=== PATIENT | male | born 1970 | race Caucasian/White ===

== ENCOUNTER 2021-04-11 08:12 | Outpatient (REF) | payer OTHER, SELFPAY ==
[2021-04-11 11:41] LABS: MANUAL DIFF FLAG NO
[2021-04-11 11:49] LABS: Basophils Percent Auto 0.5 % (0-2); Eosinophils Absolute Auto 0.2 X10*3/uL (0.0-0.4); Eosinophils Percent Auto 2.5 % (0-4); Hematocrit 44.1 % (42-52); Hemoglobin 15.1 g/dl (14.0-18.0); Imm Gran Abs Auto 0.03 X10*3/uL (0.00-0.03); Imm Gran Pct Auto 0.5 % (0.0-0.4); Lymphocytes Absolute Auto 1.7 X10*3/uL (1.2-4.9); Lymphocytes Percent Auto 28.6 % (20-40); Mean Corpuscular HGB Conc 34.2 g/dl (31.0-36.0); Mean Corpuscular Hemoglobin 28.5 pg (27.0-33.0); Mean Corpuscular Volume 83.2 fL (80-98); Mean Platelet Volume 11.3 fL (9.4-12.4); Monocytes Absolute Auto 0.5 X10*3/uL (0.1-1.2); Monocytes Percent Auto 8.5 % (2-11); Neutrophils Absolute Auto 3.5 X10*3/uL (2.0-8.3); Neutrophils Percent Auto 59.4 % (45-73); Platelet Count 188 X10*3/uL (160-400); Red Cell Distribution Width 11.9 % (11.0-16.0)
[2021-04-11 11:57] LABS: Estimated Average Glucose 289 mg/dL; Hemoglobin A1c % 11.7 %
[2021-04-11 12:00] LABS: Alanine Aminotransferase 35 U/L (0-40); Albumin Level 4.3 g/dL (3.5-5.0); Alkaline Phosphatase 75 U/L (39-117); Anion Gap 11 (12-20); Aspartate Amino Transferase 21 U/L (5-37); Bilirubin Total 0.8 mg/dL (0.0-1.0); Blood Urea Nitrogen 14 mg/dL (9-16); Calcium 9.4 mg/dL (8.4-10.2); Carbon Dioxide 28 mmol/L (22-29); Chloride 102 mmol/L (96-108); Cholesterol 123 mg/dL; Estimated Glomerular Filt Rate > 60; Glucose Fasting 284 mg/dL (60-99); HDL Cholesterol 34 mg/dL; LDL Cholesterol Calculated 54 mg/dl; Potassium 4.4 mmol/L (3.3-5.1); Sodium 137 mmol/L (135-145); Total Protein 6.4 g/dL (6.5-8.0); Triglycerides 176 mg/dL
== END 2021-04-11 08:13 | disposition home or self-care (01) ==
LOC: HO.MANLDS 08:12
PROVIDERS: PCP Internal Medicine; Visit Provider Physician Assistant
DX: I10 Essential (primary) hypertension (principal); E11.9 Type 2 diabetes mellitus without complications; E78.00 Pure hypercholesterolemia, unspecified
CPT/HCPCS: 36415; 80053; 80061; 83036; 85025

== ENCOUNTER 2021-07-03 07:51 | Outpatient (REF) | payer OTHER, SELFPAY ==
[2021-07-03 11:55] LABS: Estimated Average Glucose 223 mg/dL; Hemoglobin A1c % 9.4 %
== END 2021-07-03 07:52 | disposition home or self-care (01) ==
LOC: HO.MANLDS 07:51
PROVIDERS: PCP Internal Medicine; Visit Provider Internal Medicine
DX: E11.9 Type 2 diabetes mellitus without complications (principal)
CPT/HCPCS: 36415; 83036

== ENCOUNTER 2021-10-06 07:52 | Outpatient (REF) | payer OTHER, SELFPAY ==
[2021-10-06 11:25] LABS: MANUAL DIFF FLAG NO
[2021-10-06 11:36] LABS: Estimated Average Glucose 220 mg/dL; Hemoglobin A1c % 9.3 %
[2021-10-06 11:37] LABS: Basophils Percent Auto 0.4 % (0-2); Eosinophils Absolute Auto 0.1 X10*3/uL (0.0-0.4); Eosinophils Percent Auto 1.8 % (0-4); Hematocrit 46.4 % (42.0-52.0); Hemoglobin 15.8 g/dl (14.0-18.0); Imm Gran Abs Auto 0.02 X10*3/uL (0.00-0.03); Imm Gran Pct Auto 0.3 % (0.0-0.4); Lymphocytes Absolute Auto 2.1 X10*3/uL (1.2-4.9); Lymphocytes Percent Auto 29.1 % (20-40); Mean Corpuscular HGB Conc 34.1 g/dl (31.0-36.0); Mean Corpuscular Hemoglobin 28.7 pg (27.0-33.0); Mean Corpuscular Volume 84.4 fL (80.0-98.0); Mean Platelet Volume 11.5 fL (9.4-12.4); Monocytes Absolute Auto 0.6 X10*3/uL (0.1-1.2); Monocytes Percent Auto 9.1 % (2-11); Neutrophils Absolute Auto 4.2 x10*3/uL (2.0-8.3); Neutrophils Percent Auto 59.3 % (45-73); Platelet Count 197 X10*3/uL (160-400); Red Cell Distribution Width 11.9 % (11.0-16.0); White Blood Count 7.1 X10*3/uL (4.8-10.8)
[2021-10-06 11:55] LABS: Creatinine Urine 203.16 mg/dL; Microalbum/Creatinine Ratio Ur 7.3 ug/mg cr
[2021-10-06 12:12] LABS: Alanine Aminotransferase 31 U/L (0-40); Albumin Level 4.2 g/dL (3.5-5.0); Alkaline Phosphatase 64 U/L (39-117); Anion Gap 11 (12-20); Aspartate Amino Transferase 16 U/L (5-37); Blood Urea Nitrogen 17 mg/dL (9-16); Calcium 9.7 mg/dL (8.4-10.2); Carbon Dioxide 28 mmol/L (22-29); Chloride 103 mmol/L (96-108); Cholesterol 119 mg/dL; Estimated Glomerular Filt Rate > 60; Glucose Fasting 224 mg/dL (60-99); HDL Cholesterol 29 mg/dL; LDL Cholesterol Calculated 39 mg/dl; Potassium 4.4 mmol/L (3.3-5.1); Sodium 138 mmol/L (135-145); Total Protein 6.5 g/dL (6.5-8.0); Triglycerides 259 mg/dL
== END 2021-10-06 07:53 | disposition home or self-care (01) ==
LOC: HO.MANLDS 07:52
PROVIDERS: PCP Internal Medicine; Visit Provider Internal Medicine
DX: E11.9 Type 2 diabetes mellitus without complications (principal)
CPT/HCPCS: 36415; 80053; 80061; 82043; 83036; 85025

== ENCOUNTER 2022-07-09 07:41 | Outpatient (REF) | payer OTHER, SELFPAY ==
[2022-07-09 11:47] LABS: Estimated Average Glucose 240 mg/dL
[2022-07-09 11:57] LABS: Alanine Aminotransferase 28 U/L (0-40); Albumin Level 4.3 g/dL (3.5-5.0); Alkaline Phosphatase 65 U/L (39-117); Anion Gap 16 (12-20); Aspartate Amino Transferase 22 U/L (5-37); Bilirubin Total 0.9 mg/dL (0.0-1.0); Blood Urea Nitrogen 25 mg/dL (9-16); Calcium 9.7 mg/dL (8.4-10.2); Carbon Dioxide 24 mmol/L (22-29); Chloride 101 mmol/L (96-108); Cholesterol 109 mg/dL; Estimated Glomerular Filt Rate > 60; Glucose Random 246 mg/dL (60-115); HDL Cholesterol 34 mg/dL; LDL Cholesterol Calculated 41 mg/dl; Potassium 4.7 mmol/L (3.3-5.1); Sodium 136 mmol/L (135-145); Total Protein 6.3 g/dL (6.5-8.0); Triglycerides 172 mg/dL
[2022-07-09 12:26] LABS: Prostate Specific Antigen 1.95 ng/mL (<0.05-4.0)
== END 2022-07-09 07:42 | disposition home or self-care (01) ==
LOC: HO.MANLDS 07:41
PROVIDERS: Visit Provider Internal Medicine
DX: Z12.5 Encounter for screening for malignant neoplasm of prostate (principal); E11.9 Type 2 diabetes mellitus without complications
CPT/HCPCS: 36415; 80053; 80061; 83036; 84153

== ENCOUNTER 2023-01-01 08:09 | Outpatient (REF) | payer OTHER, SELFPAY ==
[2023-01-01 11:36] LABS: Estimated Average Glucose 197 mg/dL; Hemoglobin A1c % 8.5 %
[2023-01-01 12:19] LABS: Creatinine Urine 76.53 mg/dL; Microalbum/Creatinine Ratio Ur 11.7 ug/mg cr
[2023-01-01 12:23] LABS: Alanine Aminotransferase 29 U/L (0-40); Albumin Level 4.2 g/dL (3.5-5.0); Alkaline Phosphatase 54 U/L (39-117); Anion Gap 14 (12-20); Aspartate Amino Transferase 18 U/L (5-37); Bilirubin Total 1.1 mg/dL (0.0-1.0); Blood Urea Nitrogen 22 mg/dL (9-16); Calcium 9.2 mg/dL (8.4-10.2); Carbon Dioxide 27 mmol/L (22-29); Chloride 102 mmol/L (96-108); Estimated Glomerular Filt Rate > 60; Glucose Random 321 mg/dL (60-115); Potassium 4.4 mmol/L (3.3-5.1); Sodium 139 mmol/L (135-145); Total Protein 6.1 g/dL (6.5-8.0)
== END 2023-01-01 08:10 | disposition home or self-care (01) ==
LOC: HO.MANLDS 08:09
PROVIDERS: Visit Provider Internal Medicine
DX: E11.9 Type 2 diabetes mellitus without complications (principal)
CPT/HCPCS: 36415; 80053; 82043; 83036

== ENCOUNTER 2023-05-06 08:33 | Outpatient (REF) | payer OTHER, SELFPAY ==
[2023-05-06 13:27] LABS: MANUAL DIFF FLAG NO
[2023-05-06 13:57] LABS: Basophils Percent Auto 0.5 % (0-2); Eosinophils Absolute Auto 0.1 X10*3/uL (0.0-0.4); Eosinophils Percent Auto 1.2 % (0-4); Hematocrit 48.6 % (42.0-52.0); Hemoglobin 16.7 g/dl (14.0-18.0); Imm Gran Abs Auto 0.04 X10*3/uL (0.00-0.03); Imm Gran Pct Auto 0.5 % (0.0-0.4); Lymphocytes Absolute Auto 2.2 X10*3/uL (1.2-4.9); Lymphocytes Percent Auto 26.7 % (20-40); Mean Corpuscular HGB Conc 34.4 g/dl (31.0-36.0); Mean Corpuscular Volume 84.5 fL (80.0-98.0); Monocytes Absolute Auto 0.6 X10*3/uL (0.1-1.2); Monocytes Percent Auto 7.8 % (2-11); Neutrophils Absolute Auto 5.1 x10*3/uL (2.0-8.3); Neutrophils Percent Auto 63.3 % (45-73); Platelet Count 194 X10*3/uL (160-400); Red Blood Count 5.75 X10*6/uL (4.60-5.80); Red Cell Distribution Width 12.6 % (11.0-16.0); White Blood Count 8.1 X10*3/uL (4.8-10.8)
[2023-05-06 13:59] LABS: Estimated Average Glucose 171 mg/dL; Hemoglobin A1c % 7.6 % (<6.0)
[2023-05-06 14:07] LABS: Alanine Aminotransferase 26 U/L (0-40); Albumin Level 4.3 g/dL (3.5-5.0); Alkaline Phosphatase 67 U/L (39-117); Anion Gap 13 (12-20); Aspartate Amino Transferase 27 U/L (5-37); Bilirubin Total 0.7 mg/dL (0.0-1.0); Blood Urea Nitrogen 20 mg/dL (9-16); Calcium 9.8 mg/dL (8.4-10.2); Carbon Dioxide 25 mmol/L (22-29); Chloride 106 mmol/L (96-108); Cholesterol 120 mg/dL (<200); Estimated Glomerular Filt Rate > 60; Glucose Random 154 mg/dL (60-115); HDL Cholesterol 31 mg/dL (>40); Potassium 4.3 mmol/L (3.3-5.1); Sodium 140 mmol/L (135-145); Total Protein 6.8 g/dL (6.5-8.0); Triglycerides 408 mg/dL (<150)
== END 2023-05-06 08:34 | disposition home or self-care (01) ==
LOC: HO.MANLDS 08:33
PROVIDERS: Visit Provider Internal Medicine
DX: E11.9 Type 2 diabetes mellitus without complications (principal)
CPT/HCPCS: 36415; 80053; 80061; 83036; 85025

== ENCOUNTER 2023-09-02 08:04 | Outpatient (REF) | payer OTHER, SELFPAY ==
[2023-09-02 09:40] LABS: MANUAL DIFF FLAG NO
[2023-09-02 09:43] LABS: Basophils Percent Auto 0.6 % (0-2); Eosinophils Absolute Auto 0.1 X10*3/uL (0.0-0.4); Eosinophils Percent Auto 1.5 % (0-4); Hematocrit 45.8 % (42.0-52.0); Hemoglobin 15.6 g/dl (14.0-18.0); Imm Gran Abs Auto 0.03 X10*3/uL (0.00-0.03); Imm Gran Pct Auto 0.4 % (0.0-0.4); Lymphocytes Absolute Auto 2.2 X10*3/uL (1.2-4.9); Lymphocytes Percent Auto 30.5 % (20-40); Mean Corpuscular HGB Conc 34.1 g/dl (31.0-36.0); Mean Corpuscular Hemoglobin 28.6 pg (27.0-33.0); Mean Corpuscular Volume 83.9 fL (80.0-98.0); Mean Platelet Volume 11.1 fL (9.4-12.4); Monocytes Absolute Auto 0.6 X10*3/uL (0.1-1.2); Monocytes Percent Auto 8.4 % (2-11); Neutrophils Absolute Auto 4.2 x10*3/uL (2.0-8.3); Neutrophils Percent Auto 58.6 % (45-73); Platelet Count 187 X10*3/uL (160-400); Red Blood Count 5.46 X10*6/uL (4.60-5.80); Red Cell Distribution Width 12.2 % (11.0-16.0); White Blood Count 7.2 X10*3/uL (4.8-10.8)
[2023-09-02 09:56] LABS: Alanine Aminotransferase 25 U/L (0-40); Albumin Level 4.2 g/dL (3.5-5.0); Alkaline Phosphatase 58 U/L (39-117); Anion Gap 13 (12-20); Aspartate Amino Transferase 18 U/L (5-37); Bilirubin Total 0.8 mg/dL (0.0-1.0); Blood Urea Nitrogen 16 mg/dL (9-16); Calcium 9.4 mg/dL (8.4-10.2); Carbon Dioxide 26 mmol/L (22-29); Chloride 103 mmol/L (96-108); Cholesterol 115 mg/dL (<200); Estimated Glomerular Filt Rate > 60; Glucose Random 190 mg/dL (60-115); HDL Cholesterol 33 mg/dL (>40); LDL Cholesterol Calculated 31 mg/dL (<100); Potassium 3.7 mmol/L (3.3-5.1); Sodium 138 mmol/L (135-145); Total Protein 6.6 g/dL (6.5-8.0); Triglycerides 256 mg/dL (<150)
[2023-09-02 10:31] LABS: Estimated Average Glucose 209 mg/dL; Hemoglobin A1c % 8.9 % (<6.0)
== END 2023-09-02 08:05 | disposition home or self-care (01) ==
LOC: HO.MANLDS 08:04
PROVIDERS: Visit Provider Internal Medicine
DX: E11.9 Type 2 diabetes mellitus without complications (principal)
CPT/HCPCS: 36415; 80053; 80061; 83036; 85025

== ENCOUNTER 2024-12-08 07:35 | Outpatient (REF) | payer OTHER, SELFPAY ==
[2024-12-08 13:36] LABS: MANUAL DIFF FLAG NO
[2024-12-08 13:43] LABS: Basophils Percent Auto 0.4 % (0-2); Eosinophils Absolute Auto 0.1 X10*3/uL (0.0-0.4); Eosinophils Percent Auto 1.8 % (0-4); Hematocrit 47.2 % (42.0-52.0); Hemoglobin 16.1 g/dl (14.0-18.0); Imm Gran Abs Auto 0.03 X10*3/uL (0.00-0.03); Imm Gran Pct Auto 0.4 % (0.0-0.4); Lymphocytes Absolute Auto 1.9 X10*3/uL (1.2-4.9); Mean Corpuscular HGB Conc 34.1 g/dl (31.0-36.0); Mean Corpuscular Hemoglobin 28.6 pg (27.0-33.0); Mean Platelet Volume 11.5 fL (9.4-12.4); Monocytes Absolute Auto 0.6 X10*3/uL (0.1-1.2); Monocytes Percent Auto 8.6 % (2-11); Neutrophils Absolute Auto 4.7 x10*3/uL (2.0-8.3); Neutrophils Percent Auto 63.8 % (45-73); Platelet Count 185 X10*3/uL (160-400); Red Blood Count 5.62 X10*6/uL (4.60-5.80); Red Cell Distribution Width 12.4 % (11.0-16.0); White Blood Count 7.4 X10*3/uL (4.8-10.8)
[2024-12-08 13:54] LABS: Estimated Average Glucose 260 mg/dL; Hemoglobin A1c % 10.7 % (<6.0)
[2024-12-08 14:03] LABS: Alanine Aminotransferase 37 U/L (0-40); Albumin Level 4.2 g/dL (3.5-5.0); Alkaline Phosphatase 51 U/L (39-117); Anion Gap 12 (12-20); Aspartate Amino Transferase 27 U/L (5-37); Bilirubin Total 0.9 mg/dL (0.0-1.0); Blood Urea Nitrogen 20 mg/dL (9-16); Calcium 9.6 mg/dL (8.4-10.2); Carbon Dioxide 26 mmol/L (22-29); Chloride 104 mmol/L (96-108); Cholesterol 119 mg/dL (<200); Estimated Glomerular Filt Rate > 60; Glucose Random 203 mg/dL (60-115); HDL Cholesterol 33 mg/dL (>40); LDL Cholesterol Calculated 33 mg/dL (<100); Potassium 3.9 mmol/L (3.3-5.1); Sodium 138 mmol/L (135-145); Total Protein 6.5 g/dL (6.5-8.0); Triglycerides 268 mg/dL (<150)
[2024-12-08 14:30] LABS: Creatinine Urine 73.11 mg/dL; Microalbum/Creatinine Ratio Ur 13.6 ug/mg cr (<30)
== END 2024-12-08 07:36 | disposition home or self-care (01) ==
LOC: HO.MANLDS 07:35
PROVIDERS: Visit Provider Internal Medicine
DX: E78.00 Pure hypercholesterolemia, unspecified (principal); E11.9 Type 2 diabetes mellitus without complications
CPT/HCPCS: 36415; 80053; 80061; 82043; 82570; 83036; 85025

== ENCOUNTER 2025-04-13 07:38 | Outpatient (REF) | payer OTHER, SELFPAY ==
--- OUTSIDE RECORDS SUMMARY | 2025-04-13 07:42 | XMS_ITS | Clinical Summary ---
Author Organization [facility] Address [address] [address] Phone Care Team Providers Care Sack Sorter Name Role Phone Oleg Dsouza Primary Care Provider [phone] Allergies Active Allergy Reactions Criticality Noted Date Comments Azithromycin 05/08/2020 Medications atorvastatin (LIPITOR) 40 MG tablet Take 40 mg by mouth daily. Active metoprolol succinate (TOPROL-XL) 100 MG 24 hr tablet Take 100 mg by mouth daily. Active metFORMIN (GLUCOPHAGE) 500 MG tablet Take 500 mg by mouth 2 (two) times a day with meals. Active aspirin 81 MG EC tablet Take 81 mg by mouth daily. Active Social History Tobacco Use Types Packs/Day Years Used Date Smoking Tobacco: Never Smokeless Tobacco: Never Alcohol Use Standard Drinks/Week Comments Yes 0 (1 standard drink = 0.6 oz pur e alcohol) occ Education Answer Date Recorded Are you interested in more education? Not on frandy e 01/11/2023 Are you concerned about learning? Not on file 01/11/2023 No 01/11/2023 No 01/11/2023 Digital Access Answer Date Recorded No 02/11/2023 No 02/11/2023 No 02/11/2023 Reliable internet access at home? Not on file 02/11/2023 Device with a working camera? Not on file Sex and Gender Information Value Date Recorded Sex Assigned at Male 05/08/2020 4:12 PM EDT Legal Sex Male 9:36 PM EDT Gender Identity Male 05/08/2020 4:12 PM EDT Sexual Orientation Not on file Last Filed Vital Signs Vital Sign Reading Time Taken Comments Blood Pressure 124/67 05/08/2020 6:02 PM EDT Pulse 68 05/08/2020 6:02 PM EDT Temperature 36.5 C (97.7 F) 05/08/2020 6:02 PM EDT Respiratory Rate 16 05/08/2020 6:02 PM EDT Oxygen Saturation 98% 05/08/2020 6:02 PM EDT Inhaled Oxygen Concentration - - Weight 113.4 kg (250 lb) 05/08/2020 4:06 PM EDT Height 188 cm (6' 2 ) 05/08/2020 4:06 PM EDT Body Mass Index 32.1 05/08/2020 4:06 PM EDT Plan of Treatment Not on file Medical Devices Not on file Insurance [facility] Member Subscriber Plan / Payer (Ef fective 2002-Present) Name:Andrey Robin Relation to Subscriber:Self Name:ANDREY ROBIN Payer ID:[id number] (NA) Type:HMO Address: [place] [id number] [facility] [place] [address] [place] [address] [place] [address] [facility] Care Teams Sack Sorter Relationship Specialty Start Date End Date Oleg Dsouza DO [phone] (work) [email or web address] PCP - General Internal Medicine 05/08/20 Additional Source Comments The information contained in this document represents components of the legal health record. It is not the complete legal health record.[facility]
--- OUTSIDE RECORDS SUMMARY | 2025-04-13 07:43 | XMS_ITS | Data Portability ---
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) [facility] MODERATE MUST MEET 2 OUT OF 3 ELEMENTS: PROBLEMS, DATA OR RISK ELEMENT 1: PROBLEMS ADDRESSED 1 OR MORE CHRONIC ILLNESS WITH EXACERBATION OR 2 OR MORE STABLE CHRONIC ILLNESSES OR 1 UNDIAGNOSED NEW PROBLEM OR 1 ACUTE ILLNESS W/SYMPTOMS OR 1 ACUTE COMPLICATED INJURY ELEMENT 2: DATA MUST MEET 1 OF 3 CATEGORIES CATEGORY 1: REVIEW OF PRIOR EXTERNAL NOTES, REVIEW OF RESULTS, ORDERING OF EACH TEST, ASSESSMENT REQUIRING INDEPENDENT HISTORIAN OR CATEGORY 2: INDEPENDENT INTERPRETATION OF TESTS BY ANOTHER PHYSICIAN OR SPECIALIST OR CATEGORY 3: DISCUSSION OF MGT OR TEST INTERPRETATION W/EXTERNAL PHYSICIAN OR SPECIALIST ELEMENT 3: RISK RISK OF COMPLICATIONS AND/OR MORBIDITY OR MORTALITY OF PATIENT MANAGEMENT PROVIDER MUST THOROUGHLY DOCUMENT EACH ELEMENT THAT IS COVERED Not available 01/18/2023 12:35:43 05/06/2023 05/06/2023 [id number] [place] [id number] (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) [facility] MODERATE MUST MEET 2 OUT OF 3 ELEMENTS: PROBLEMS, DATA OR RISK ELEMENT 1: PROBLEMS ADDRESSED 1 OR MORE CHRONIC ILLNESS WITH EXACERBATION OR 2 OR MORE STABLE CHRONIC ILLNESSES OR 1 UNDIAGNOSED NEW PROBLEM OR 1 ACUTE ILLNESS W/SYMPTOMS OR 1 ACUTE COMPLICATED INJURY ELEMENT 2: DATA MUST MEET 1 OF 3 CATEGORIES CATEGORY 1: REVIEW OF PRIOR EXTERNAL NOTES, REVIEW OF RESULTS, ORDERING OF EACH TEST, ASSESSMENT REQUIRING INDEPENDENT HISTORIAN OR CATEGORY 2: INDEPENDENT INTERPRETATION OF TESTS BY ANOTHER PHYSICIAN OR SPECIALIST OR CATEGORY 3: DISCUSSION OF MGT OR TEST INTERPRETATION W/EXTERNAL PHYSICIAN OR SPECIALIST ELEMENT 3: RISK RISK OF COMPLICATIONS AND/OR MORBIDITY OR MORTALITY OF PATIENT MANAGEMENT PROVIDER MUST THOROUGHLY DOCUMENT EACH ELEMENT THAT IS COVERED Not available 05/06/2023 16:20:26 10/07/2023 10/07/2023 [id number] [place] [id number] (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) [facility] MODERATE MUST MEET 2 OUT OF 3 ELEMENTS: PROBLEMS, DATA OR RISK ELEMENT 1: PROBLEMS ADDRESSED 1 OR MORE CHRONIC ILLNESS WITH EXACERBATION OR 2 OR MORE STABLE CHRONIC ILLNESSES OR 1 UNDIAGNOSED NEW PROBLEM OR 1 ACUTE ILLNESS W/SYMPTOMS OR 1 ACUTE COMPLICATED INJURY ELEMENT 2: DATA MUST MEET 1 OF 3 CATEGORIES CATEGORY 1: REVIEW OF PRIOR EXTERNAL NOTES, REVIEW OF RESULTS, ORDERING OF EACH TEST, ASSESSMENT REQUIRING INDEPENDENT HISTORIAN OR CATEGORY 2: INDEPENDENT INTERPRETATION OF TESTS BY ANOTHER PHYSICIAN OR SPECIALIST OR CATEGORY 3: DISCUSSION OF MGT OR TEST INTERPRETATION W/EXTERNAL PHYSICIAN OR SPECIALIST ELEMENT 3: RISK RISK OF COMPLICATIONS AND/OR MORBIDITY OR MORTALITY OF PATIENT MANAGEMENT PROVIDER MUST THOROUGHLY DOCUMENT EACH ELEMENT THAT IS COVERED Not available 10/07/2023 16:46:45 12/09/2024 12/09/2024 [id number] [place] [id number] (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) [facility] HIGH MUST MEET 2 OUT OF 3 ELEMENTS: PROBLEMS, DATA OR RISK ELEMENT 1: PROBLEMS 1 OR MORE CHRONIC ILLNESS W/SEVERE EXACERBATION, PROGRESSION MAY REQUIRE HOSPITAL LEVEL CARE OR 1 ACUTE OR CHRONIC ILLNESS OR INJURY THAT POSES A THREAT TO LIFE OR BODILY FUNCTION ELEMENT 2: DATA: MUST MEET 2 OF 3 CATEGORIES CATEGORY 1 REVIEW OF PRIOR EXTERNAL NOTES REVIEW OF THE RESULTS ORDERING OF EACH TEST ASSESSMENT REQUIRING INDEPENDENT HISTORIAN(S) CATEGORY 2: INDEPENDENT INTERPRETATION OF TESTS BY ANOTHER PROVIDER/SPECIALI ST CATEGORY 3: DISCUSSION OF MGT OR TEST INTERPRETATION W/EXTERNAL PHYSICIAN/SPECIAL IST ELEMENT 3: RISK HIGH RISK OF MORBIDITY FROM ADDITIONAL DIAGNOSTIC TESTING OR TREATMENT PROVIDER MUST THOROUGHLY DOCUMENT EACH ELEMENT THAT IS COVERED The patient presented to their appointment today for multiple concerns requiring moderate to high-level decision making and took over 40-45 minutes for an adequate and appropriate history, exam, assessment and treatment plan. This appointment was done with an established patient. Not available 12/09/2024 15:29:29 Plan of Treatment Reminders Order Date Submit Date Provider Last Modified By Organization Details Last Modified Time Details Appointments ANNUAL EXAM 2024 02:30P M DR DENISE Not available Not available Not available Lab HbA1c (hemoglob in A1c), blood 2024 025 [facility], [address] [place], [address], 12/09/2024 15:27:04 HbA1c (hemoglob in A1c), blood 2023 024 [facility], [address] [place] [address], [id number], 10/07/2023 16:50:38 HbA1c (hemoglob in A1c), blood 2022 023 [facility], [address] [place] [address], [id number], 01/18/2023 12:45:22 microalbu min, urine 2021 022 [facility], [address] [place] [address], [id number], 07/09/2022 16:17:43 HbA1c (hemoglob in A1c), blood 2021 022 [facility], [address] [place] [address], [address], 07/10/2022 14:51:34 CMP, serum or plasma 2021 022 [facility], [address] [place] [address], [id number], 07/09/2022 16:17:43 Referral gastroent erologist referral 2024 025 [facility], [address] [place] [address], [address], 01/11/2025 08:32:01 gastroent erologist referral 2022 023 [facility], [address] [place], [address], 05/07/2023 08:20:42 Procedures None recorded. Surgeries None recorded. Imaging XR, shoulder, 2 or more view 2024 025 [facility], [address] , [place], [address], 12/16/2024 08:29:48 Medication Orders glimepiri de 4 mg tablet 2024 025 [id number], [address], [place], [id number], 12/09/2024 15:25:56 Patient TargetsNo targets recorded. Patient Instructions Encounter Date Encounter Id Patient Instructions Last Modified By Organization Details Last Modified Time 07/09/2022 [id number] diabetic foot exam* Not available 07/09/2022 16:16:22 pulse oximetry* Not available 07/09/2022 16:16:22 01/18/2023 [id number] pulse oximetry* Not available 01/18/2023 12:40:14 10/07/2023 [id number] pulse oximetry* Not available 10/07/2023 16:48:52 12/09/2024 [id number] colonoscopy: before your procedure Not available 12/09/2024 15:28:09 colonoscopy: wha t to expect at home Not available 12/09/2024 15:28:09 pulse oximetry* Not available 12/09/2024 15:25:52 Reason for Referral 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 for Screening for malignant neoplasm of colon Referring Physician: Oleg Denise, Internal Medicine, Encounter Date: 05/06/2023 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 Referral for Screening for malignant neoplasm of colon Referring Physician: Oleg Denise, Internal Medicine, Encounter Date: 12/09/2024 Results Created Date Observation Date Name Description Value Unit Range Abnormal Flag Note LastModifiedBy Organization Detail LastModifiedTime 07/09/2007/09/2022 pulse oxime try* Result 98 Not Available [facility] [address] [facility] [address], [place], [address], 07/09/2022 09:10:37 01/19/20 23 01/18/2023 pulse oxime try* Result 96 Not Available [facility] [address] [facility] [address], [place], [address], 11/19/2022 10:39:50 10/07/19 24 10/07/2023 pulse oxime try* Result 96% Not Available [facility] [address] [facility] [address], [place], [address], 10/03/2023 08:20:02 12/10/1912/09/2024 pulse oxime try* Result 98% Not Available [facility] [address] [facility] [address], [place], [address], 12/08/2024 08:43:12 Result Notes None recorded. Problems Name Problem SNOMED Code Status Onset Date Resolution Date Notes Provider Name and Address Organization Details Recorded Time Nasra cordova hyperten shalonda 75670913 Active 2017 Not Available [facility] 3 03:09:08 Type 2 diabetes mellitus 95068533 Completed 201706/20/2018December GENIE De Los Santos [address] [facility], [place], [address], [facility] 8 16:32:40 Type 2 diabetes mellitus without complica tion 160250163 Active [address] [facility] 5 11:39:54 Hypercho lesterol emia 53793867 Active 2018 Not Available [facility] 3 03:09:08 Paroxysm al atrial fibrilla tion 081478385 Active 2018 Not Available [facility] 3 03:09:08 Hypertri glycerid emia 494291372 Active 2022 Not Available [facility] 3 03:09:08 Atrial fibrilla tion 49502018 Active 2023 Oleg Denise DO [address] [place], [address], [facility] 4 16:47:08 Pain of right shoulder joint 26703346035 681891 Active 2024 Oleg NakulTony Tysonaissatou, DO [address] [facility], [place], [address], [facility] 5 15:26:52 Problem Notes None recorded. Medical Equipment None Reported. Allergies Allergen ID Allergen Name Allergen Category Reaction Reaction Severity Criticality Documentation Date Start Date Code Code System Note Provider Name and Address Organization Details Recorded Time 2383 Zithromax medicatio n rash Not available Not available 06/20/2018 4 RxNorm Erin Barragan arnulfo [facility] 8 16:21:32 Medications Name Sig Start Date Stop Date Status Note LastModified by Organization Details LastModified Time amoxicillin 500 mg capsule TAKE ONE CAPSULE BY MOUTH THREE TIMES DAILY 03/29 completed Not Available Not Available Not Available atorvastati n 40 mg tablet TAKE 1 TABLET BY MOUTH EVERY DAY active Not Available Not Available No t Available metformin 500 mg tablet TAKE 1 TABLET BY MOUTH ONCE DAILY--PL EASE SCHEDULE DIABETES FOLLOW UP 11/07 completed Not Available Not Available Not Available hydrocodone 5 mg-acetamin ophen 325 mg tablet 05/18 completed Not Available Not Available Not Available prednisone 20 mg tablet 03/29 completed Not Available Not Available Not Available metoprolol succinate ER 100 mg tablet,exte nded release 24 hr TAKE 1 TABLET BY MOUTH EVERY DAY 2024 active Not Available Not Available Not Avai lable sulfamethox azole 800 mg-trimetho prim 160 mg tablet Take 1 tablet every 12 hours by oral route for 10 days. 11/07 completed Not Available Not Available Not Available amoxicillin 500 mg tablet TAKE 1 TABLET BY MOUTH THREE TIMES A DAY 03/29 completed Not Available Not Available Not Available Claritin-D 24 Hour 10 mg-240 mg tablet,exte nded release TAKE 1 TABLET BY MOUTH EVERY DAY 03/29 completed Not Available Not Available Not Available metformin 1,000 mg tablet TAKE 1 TABLET BY MOUTH TWICE DAILY active Not Available Not Available No t Available glimepiride 4 mg tablet TAKE 1 TABLET BY MOUTH EVERY DAY active Not Available Not Available No t Available amoxicillin 875 mg-potassiu m clavulanate 125 mg tablet TAKE 1 TABLET BY MOUTH TWICE DAILY 03/29 completed Not Available Not Available Not Available chlorhexidi ne gluconate 0.12 % mouthwash RINSE MOUTH WITH 10 ML TWICE DAILY FOR 3 WEEKS 03/29 completed Not Available Not Available Not Available Aspir-81 1 tablet once a day active Not Available Not Available No t Available OneTouch Verio test strips USE DIRECTED TO TEST BLOOD SUGAR EVERY DAY active Not Available Not Available No t Available Jardiance 25 mg tablet TAKE 1 TABLET BY MOUTH EVERY DAY active Not Available Not Available No t Available Trulicity 1.5 mg/0.5 mL subcutaneou s pen injector ADMINISTE R 1.5 MG UNDER THE SKIN EVERY WEEK 12/09 completed Not Available Not Available Not Available Trulicity 0.75 mg/0.5 mL subcutaneou s pen injector ADMINISTE R 0.75 MG UNDER THE SKIN EVERY WEEK NEEDED 10/09 completed Not Available Not Available Not Available OneTouch Verio Flex Meter USE DIRECTED active Not Available Not Available No t Available COVID-19 test specimen collection TEST DIRECTED TODAY 05/16 completed Not Available Not Available Not Available Trulicity 3 mg/0.5 mL subcutaneou s pen injector INJECT 3MG UNDER VERONIKA SKIN EVERY WEEK active Not Available Not Available No t Available Vitals Date Recorded Body height Body mass index (BMI) Body weight Heart rate Oxygen saturation Oxygen saturation in Arterial blood by Pulse oximetry Systolic And Diastolic Provider Name and Address Organization Details Last Updated DateTime 4 185.42 cm 29 kg/m2 28576.3 2 g 88 /min 99 % 99 % 138/82 mm[Hg] Adia Collins [facility] 4 15:41:52 Date Recorded Body height Body mass index (BMI) Body weight Heart rate Oxygen saturation Oxygen saturation in Arterial blood by Pulse oximetry Systolic And Diastolic Provider Name and Address Organization Details Last Updated DateTime 5 185.42 cm 29 kg/m2 11073.6 g 85 /min 98 % 98 % 116/76 mm[Hg] Brie Drew [facility] 5 15:06:15 Date Recorded Body height Body mass index (BMI) Body weight Heart rate Oxygen saturation Oxygen saturation in Arterial blood by Pulse oximetry Systolic And Diastolic Provider Name and Address Organization Details Last Updated DateTime 3 185.42 cm 30.3 kg/m2 784253. 25 g 64 /min 96 % 96 % 115/66 mm[Hg] Dana Bailey [facility] 3 12:09:06 Date Recorded Body height Body mass index (BMI) Body weight Heart rate Oxygen saturation Oxygen saturation in Arterial blood by Pulse oximetry Systolic And Diastolic Provider Name and Address Organization Details Last Updated DateTime 3 185.42 cm 29.6 kg/m2 573770. 69 g 76 /min 96 % 96 % 120/74 mm[Hg] Dana Bailey [facility] 3 15:49:03 Date Recorded Body height Body mass index (BMI) Body weight Heart rate Oxygen saturation Oxygen saturation in Arterial blood by Pulse oximetry Systolic And Diastolic Provider Name and Address Organization Details Last Updated DateTime 2 185.42 cm 30.3 kg/m2 993913. 53 g 66 /min 98 % 98 % 130/80 mm[Hg] Oleg Denise, DO [address] [place], [address] [place] [address] Internal Medicine 2 15:46:50 Social History Question Answer Notes LastModified by Organizat ion Details LastModified Time Tobacco Smoking Status Never Smoker Not Available [facility] 07/19/2020 03:36:24 What Was The Date Of Your Most Recent Tobacco Screening? 12/09/2024 [email or web address] Information not available 12/09/2024 Sex: Unknown Functional Status Question Answer Note LastModified by Organization D etails LastModified Time Do you or have you ever used any other forms of tobacco or nicotine? No Information not available 01/18/2023 Mental Status None recorded. Family History Nothing Reported. Medical History No medical history recorded. Immunizations Vaccine Type Date Status Note Provider Nam e and Address Organization Details Recorded Time COVID-19, mRNA, LNP-S, PF, 100 mcg/0.5mL dose or 50 mcg/0.25mL dose 1 completed Not Available [facility] 08/28/2023 03:09:09 COVID-19, mRNA, LNP-S, PF, 100 mcg/0.5mL dose or 50 mcg/0.25mL dose 1 completed Not Available [facility] 08/28/2023 03:09:09 Tdap 1 completed Not Available [facility] 08/28/2023 03:09:09 Influenza, split virus, quadrivalent, preservative 0 completed Not Available [facility] 08/28/2023 03:09:08 Past Encounters Encounter ID Performer Location Encounter Start Date Encounter Closed Date Diagnosis/Indication Diagnosis SNOMED-CT Code Diagnosis ICD10 Code Diagnosis Note [id number] Oleg Denise [facility] [address] [facility] [place] [address] 06/20/2018 16:12:40 06/20/2018 16:37:27 Paronychia of finger 839108779 L03.019 Essential hypertension 10595498 I10 stable Type 2 delores betes mellitus without complication 504853132 E11.9 [id number] Oleg Denise [facility] [address] [facility],[place] [address] 11/07/2018 16:19:32 11/10/2018 08:13:48 Type 2 diabetes mellitus without complication 623674274 E11.9 poor control will need to increase metformin to 1000mg po bid Essential hypertension 57237341 I10 stable and without issue cont the same meds and no further issue Hypercholesterolemia 136 14204 E78.00 LDL is excellent at 63 Paroxysmal atrial fibrillation 062023749 I48.0 has only had a rare funny palpitatio n on very rare occasion has never needed the flecanide tab [id number] Oleg Denise [facility] [address] [facility] [address] 01/06/2020 09:08:58 01/06/2020 09:53:16 Type 2 diabetes mellitus without complication 898804068 E11.9 poor control even with increase metformin to 1000mg po bid Essential hypertension 03350980 I10 stable and without issue cont the same meds and no further issue Paroxysmal atrial fibrillation 122773153 I48.0 having more episodes assoc with ?increased gluc? but has never needed the flecanide tab as of yet ecg is nsr no signs of abnormalit y normal indices [id number] Oleg NakulTony Denise, [facility] [address] [facility] [address],[place] [facility] [place] [address] 05/18/2020 09:46:20 05/18/2020 10:52:24 Paroxysmal atrial fibrillation 225534765 I48.0 having more episodes assoc with ?increased gluc? but has never needed the flecanide tab as of yet ecg is nsr no signs of abnormalit y normal indices Type 2 delores betes mellitus without complication 177634337 E11.9 poor control even with increase metformin to 1000mg po bid (10.1) we will add januvia and consider trulicity type if unhelpful rechkj a1c in 2 mo with appt Essential hypertension 75157531 I10 stable and without issue cont the same meds and no further issue [id number] Oleg MotaTony Denise, [facility] [address] [facility],[place] [facility] [place] [address] 03/29/2021 14:17:29 03/29/2021 14:58:39 Essential hypertension 50239218 I10 BP excellent Hypercholesterolemia 136 63288 E78.00 stable Type 2 delores betes mellitus without complication 362763831 E11.9 stableneed s BW Paroxysmal atrial fibrillation 525179262 I48.0 stable [id number] Oleg Denise, [facility] [address] [facility] [address] [facility] [place] [address] 04/11/2021 14:43:35 04/11/2021 15:41:32 Type 2 diabetes mellitus without complication 271325739 E11.9 poor contro overall and it is confusing given he is 11.8 a1c despite a well documented wgt loss of >15lbswe millie try to get him januvia and trulicity but am worried about the insurance and deny ingorder written and he will let us knowmust get eye exam Essential hypertension 19287150 I10 stable and without issue cont the same meds and no further issue Hypercholesterolemia 136 39528 E78.00 LDL is excellent at 63 Paroxysmal atrial fibrillation 064677116 I48.0 having more episodes assoc with ?increased gluc? but has never needed the flecanide tab as of yet ecg is nsr no signs of abnormalit y normal indices [id number] Oleg Denise DO [facility] [address] [facility],[place] [address] 07/04/2021 14:52:29 07/04/2021 16:07:17 Paroxysmal atrial fibrillation 731398793 I48.0 having more episodes assoc with ?increased gluc? but has never needed the flecanide tab as of yet ecg is nsr no signs of abnormalit y normal indices Type 2 delores betes mellitus without complication 890649339 E11.9 now better control and is doing a lot better with diet now down to 9.5 from 11.7doing ok with trulicity and we will increase to 1mgcont the rhoda daniels had lost some wgt as well until recently must get eye exam Essential hypertension 30749434 I10 stable and without issue cont the same meds and no further issue [id number] Oleg Denise DO [facility] [address] [facility],[place] [address] 10/09/2021 08:19:50 2021 15:29:07 Type 2 diabetes mellitus without complication 018364735 E11.9 now down to 9.3 from 9.4 then 9.5 from 11.7doing ok with trulicity and we will increase to 1mgcont the rhoda d had lost some wgt as well until recently must get eye exam Paroxysmal atrial fibrillation 980834350 I48.0 has had no episodes but has never needed the flecanide tab as of yet ecg is nsr no signs of abnormalit y normal indices Screening for malignant neoplasm of colon 629751122 Z12.11 needs colonoscop y Essential hypertension 06552490 I10 stable and without issue cont the same meds and no further issue [id number] Oleg Denise DO [facility] [address] [facility],[place] [address] 05/16/2022 15:41:15 05/16/2022 16:07:10 Active or passive immunization 149743667 Z23 advised Adult heal th examination 651277416 Z00.00 BP stable [id number] Oleg Denise DO [facility] [address] [facility] [address] 07/09/2022 15:32:44 07/09/2022 16:23:41 Paroxysmal atrial fibrillation 117883124 I48.0 has had no episodes but has never needed the flecanide tab as of yet ecg is nsr no signs of abnormalit y normal indices Type 2 delores betes mellitus without complication 278713201 E11.9 nowback up to 10.1 from 9.3 from 9.4 then 9.5 from 11.7doing ok with trulicity and we will increase to 1mgcont the metformnan d we will start the Jardiance 10mg x 4 weeks then up to 25mg and call in 6 weeks so we can give him more samples must get eye exam Essential hypertension 22307184 I10 stable and without issue cont the same meds and no further issue Active or passive immunization 679086011 Z23 patient advised he is due for flu & pneu 23 [id number] Oleg Denise [facility] [address] [facility] [address] 01/18/2023 11:55:47 01/18/2023 15:22:14 Type 2 diabetes mellitus without complication 672774381 E11.9 nowback up to 10.1 from 9.3 from 9.4 then 9.5 from 11.7doing ok with trulicity and we will wait for 3mg availabili ty to increase to 3mgcont the metformnan d we will start the Jardiance 10mg x 4 weeks then up to 25mg and call in 6 weeks so we can give him more samples must get eye exam Essential hypertension 98392790 I10 stable and without issue cont the same meds and no further issue Paroxysmal atrial fibrillation 122847686 I48.0 has had no episodes but has never needed the flecanide tab as of yet ecg is nsr no signs of abnormalit y normal indices Screening for malignant neoplasm of colon 189435187 Z12.11 needs colonoscop y Hypercholesterolemia 136 43399 E78.00 LDL is excellent at 63 [id number] Oleg Denise [facility] [address] [facility], [place] [address] 05/06/2023 15:43:30 05/06/2023 16:39:24 Essential hypertension 75296399 I10 stable and without issue cont the same meds and no further issue Type 2 delores betes mellitus without complication 509841155 E11.9 we are waiting for a1c today he was down to 8.5 from 10.1 from 9.3 from 9.4 then 9.5 from 11.7doing ok with trulicity now back to 3mgcont the metformnan d we will start the Jardiance 10mg x 4 weeks then up to 25mg and call in 6 weeks so we can give him more samples must get eye exam still has not done Hypercholesterolemia 136 70674 E78.00 LDL is excellent at 63 Paroxysmal atrial fibrillation 713812584 I48.0 has had no episodes but has never needed the flecanide tab as of yet ecg is nsr no signs of abnormalit y normal indices Screening for malignant neoplasm of colon 334414022 Z12.11 needs colonoscop y [id number] Oleg Denise [facility] [address] [facility],[place] [address] 10/07/2023 15:32:33 10/07/2023 16:50:05 Type 2 diabetes mellitus without complication 659473195 E11.9 awaitingdo ing ok [facility]icity [facility] [facility] Jardiance 10mg x 4 weeks then up to 25mg and call in 6 weeks so we can give him more samples must get eye exam still has not done Atrial fibrillation 4943 6004 I48.0 has been stable and ddoing ok Essential hypertension [id number] I10 stable and without issue cont the same meds and no further issue Paroxysmal atrial fibrillation [id number] I48.0 has had no episodes but has never needed the flecanide tab as of yet ecg is nsr no signs of abnormalit y normal indices [id number] Oleg Denise DO [facility] [address], [place] [address] 12/09/2024 14:58:57 12/09/2024 15:34:21 Hypercholesterolemia 54421899 E78.00 LDL is excellent at 63 Essential hypertension 44045259 I10 stable and without issue cont the same meds and no further issue Type 2 delores betes mellitus without complication [id number] E11.9 a1c is up to 10 not doing well with dietwill try adding glimepirid e priorawait ingdoing ok with trulicity now back to 3mgcont the metformnan d we will start the Jardiance 10mg x 4 weeks then up to 25mg and call in 6 weeks so we can give him more samples must get eye exam still has not done Depression screening [id number] Z13.31 neg Atrial fibrillation 4943 6004 I48.0 has been stable and doing ok Pain of ri ght shoulder joint [id number] M25.511 Screening for malignant neoplasm of colon [id number] Z12.11 needs colonoscop y Health Concerns Section Related Observation LastModified by Organization Detai ls LastModified Time None Recorded Concern Status LastModified by Organization Details LastModified Time None Recorded Advance Directives Directive None Recorded Payers Insurance Date Sequence Insurance Name Policy Number Policy Shaw Covered Member ID Shaw Member ID Guarantor Name 04/10/2025 1 [employer] [id number] Giles Ling [id number] Giles Ling
[2025-04-13 13:38] LABS: Hemoglobin A1C 251.6648 umol/L; Total Hemoglobin (HGBA1C) 4051.1805 umol/L
== END 2025-04-13 07:39 | disposition home or self-care (01) ==
LOC: HO.MANLDS 07:38
PROVIDERS: Visit Provider Internal Medicine
DX: E11.9 Type 2 diabetes mellitus without complications (principal)
CPT/HCPCS: 36415; 83036

== ENCOUNTER 2025-08-06 11:32 | Outpatient (REF) | payer OTHER, SELFPAY ==
--- OUTSIDE RECORDS SUMMARY | 2025-08-06 12:24 | XMS_ITS | Data Portability ---
Author Organization [facility], Telehealth Patient Home Address [address] [place] [address] Assessment Encounter Date Assessment Date Assessment LastModified by Organization Details LastModified Time 01/18/2023 01/18/2023 [id number] [place] [address] (COMPARATIVE SOCIOLOGY PROFESSOR) [facility] MODERATE MUST MEET 2 OUT OF 3 [...] COVERED Not available 01/18/2023 12:35:43 05/06/2023 05/06/2023 [id number] [place] [address] (COMPARATIVE SOCIOLOGY PROFESSOR) [facility] MODERATE MUST MEET 2 OUT OF 3 [...] COVERED Not available 05/06/2023 16:20:26 10/07/2023 10/07/2023 [address] [place] [address] (COMPARATIVE SOCIOLOGY PROFESSOR) MDM MODERATE MUST MEET 2 OUT OF [...] COVERED Not available 10/07/2023 16:46:45 12/09/2024 12/09/2024 [id number] [place] [address] (COMPARATIVE SOCIOLOGY PROFESSOR) MDM HIGH MUST MEET 2 OUT OF [...] Organization Details Last Modified Time Details Appointments FOLLOW UP 15 2024 03:00P M DR DENISE Not available Not available Not available ANNUAL EXAM 2025 03:00P M DR DENISE Not available Not available Not available Lab hemoglobi n A1c, QN, blood 2024 025 [facility], [address] [place] [address], [id number], 04/14/2025 12:27:52 HbA1c (hemoglob in A1c), blood 2024 025 [facility], [address] [place] [address], [id number], 12/09/2024 15:27:04 HbA1c (hemoglob in A1c), blood 2023 024 [facility], [address] [place] [address], [id number], 10/07/2023 16:50:38 HbA1c (hemoglob in A1c), blood 2022 023 [facility], [address] [place] [address], [id number], 01/18/2023 12:45:22 Referral diabetic ophthalmo logy referral 2024 025 vern Simmons MD, [address] [place], [address], 05/11/2025 11:47:27 gastroent erologist referral 2024 025 [email or web address] Not available 05/19/2025 13:34:54 gastroent erologist referral 2022 023 [email or web address] Not available 05/07/2023 08:20:42 Procedures None recorded. Surgeries None recorded. Imaging XR, shoulder, 2 or more view 2024 025 vern [facility], [address] [place], [address], 12/16/2024 08:29:48 Medication Orders glimepiri de 4 mg tablet 2024 025 [id number], [address] [place] [address], [id number], 12/09/2024 15:25:56 Patient TargetsNo targets recorded. 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 Referral for Screening for malignant neoplasm of colon Referring Physician: Oleg Denise, Internal Medicine, Encounter Date: 05/06/2023 Light Fixture Servicer Referral for Screening for malignant neoplasm of colon Referring Physician: Oleg Denise [facility], Encounter Date: 12/09/2024 Diabetic Ophthalmology Refer ral for Type 2 diabetes mellitus Referring Physician: Oleg Denise, Internal Medicine, Encounter Date: 04/13/2025 Results Created Date Observation Date Name Description Value Unit Range Abnormal Flag Note LastModifiedBy Organization Detail LastModifiedTime 01/19/2001/18/2023 pulse oxime try* Result 96 Not Available [facility] [address] [place] [address], [place], [address], 11/19/2022 10:39:50 10/07/19 24 10/07/2023 pulse oxime try* Result 96% Not Available [facility] [address] [place] [address] D, [place], [address], 10/03/2023 08:20:02 12/10/1912/09/2024 pulse oxime try* Result 98% Not Available [facility] [address] [facility] [address], [place], [address], 12/08/2024 08:43:12 04/13/2004/13/2025 pulse oxime try* Result 98% Not Available [facility] [address] [facility] [address], [place], [address], 03/12/2025 11:44:11 04/13/2004/13/2025 hemog lobin A1c, QN, blood A1C 7.8 abnormal Not Available [facility] (Medical Records) [address] [facility], [place], [address], 04/14/2025 11:13:22 Result Notes None recorded. Problems Name Problem SNOMED Code Status Onset Date Resolution Date Notes Provider Name and Address Organization Details Recorded Time [facility] shalonda 28436205 Active 2017 Not Available [facility] 3 03:09:08 Type 2 diabetes mellitus 79137631 Completed 201706/20/2018 Oleg Denise DO [address] [place], [address], [facility] 5 14:53:37 Type 2 diabetes mellitus without complica tion 939119769 Active [facility] 5 11:39:54 Hypercho lesterol emia 53778571 Active 2018 Not Available [facility] 3 03:09:08 Paroxysm al atrial fibrilla tion 292781444 Active 2018 Not Available [facility] 3 03:09:08 Hypertri glycerid emia 520247363 Active 2022 Not Available [facility] 3 03:09:08 Atrial fibrilla tion 31930463 Active 2023 Oleg Denise DO [address] [place], [address], [facility] 4 16:47:08 Pain of right shoulder joint 19165966227 739619 Active 2024 Oleg Denise, DO [address] [place], [address], [facility] 5 15:26:52 Type 2 diabetes mellitus 74159820 Active 2024 Oleg Denise, DO [address] [place], [address], [facility] 5 14:53:37 Problem Notes None recorded. Medical Equipment None Reported. Allergies Allergen ID Allergen Name Allergen Category Reaction Reaction Severity Criticality Documentation Date Start Date Code Code System Note Provider Name and Address Organization Details Recorded Time 2383 Zithromax medicatio n rash Not available Not available 06/20/2018 4 RxNorm Erin Barragan [facility] 8 16:21:32 Medications Name Sig Start Date Stop Date Status Note LastModified by Organization Details LastModified Time amoxicillin 500 mg capsule TAKE ONE CAPSULE BY MOUTH THREE TIMES DAILY 03/29 completed Not Available Not Available Not Available atorvastati n 40 mg tablet TAKE 1 TABLET BY MOUTH EVERY DAY 2024 active Not Available Not Available Not Avai lable metformin 500 mg tablet TAKE 1 TABLET [...] TAKE 1 TABLET BY MOUTH TWICE DAILY 2024 active Not Available Not Available Not Avai lable glimepiride 4 mg tablet TAKE 1 TABLET BY MOUTH EVERY DAY active Not Available Not Available No t Available amoxicillin 875 mg-potrowenau m clavulanate 125 mg tablet TAKE 1 [...] Not Available Not Available Not Avai lable Trulicity 1.5 mg/0.5 mL subcutaneou s pen [...] (BMI) Body weight Heart rate Oxygen saturation Systolic And Diastolic Provider Name and Address Organization Details Last Updated DateTime 4 185.42 cm 29 kg/m2 39586.3 2 g 88 /min 99 % 138/82 mm[Hg] [facility] 4 15:41:52 Date Recorded Body height Body mass index (BMI) Body weight Heart rate Oxygen saturation Systolic And Diastolic Provider Name and Address Organization Details Last Updated DateTime 5 185.42 cm 29 kg/m2 46407.6 g 85 /min 98 % 116/76 mm[Hg] Brie Murillo [facility] 5 15:06:15 Date Recorded Body height Body mass index (BMI) Body weight Heart rate Oxygen saturation Systolic And Diastolic Provider Name and Address Organization Details Last Updated DateTime 3 185.42 cm 30.3 kg/m2 215804. 25 g 64 /min 96 % 115/66 mm[Hg] Dana Bailey [facility] 3 12:09:06 Date Recorded Body height Body mass index (BMI) Body weight Oxygen saturation Heart rate Systolic And Diastolic Provider Name and Address Organization Details Last Updated DateTime 5 185.42 cm 30 kg/m2 786805. 9 g 98 % 55 /min 128/76 mm[Hg] CLARK CASTELLANOSCHARMAINE [facility] 5 14:22:35 Date Recorded Body height Body mass index (BMI) Body weight Heart rate Oxygen saturation Systolic And Diastolic Provider Name and Address Organization Details Last Updated DateTime 3 185.42 cm 29.6 kg/m2 613120. 69 g 76 /min 96 % 120/74 mm[Hg] Dana Leo [facility] 3 15:49:03 Social History Question Answer Notes LastModified by Organizat ion Details LastModified Time Tobacco Smoking Status Never Smoker Not Available [facility] 07/19/2020 03:36:24 What Was The Date Of Your Most Recent Tobacco Screening? 04/13/2025 [email or web address] Information not available 04/13/2025 Sex: Unknown Functional Status Question Answer Note LastModified by Organization D etails LastModified Time Do you or have you ever used any other forms of tobacco or nicotine? No [email or web address] Information not available 01/18/2023 Mental Status None recorded. Family History Nothing Reported. Medical History No medical history recorded. Immunizations Vaccine Type Date Status Note Provider Nam e and Address Organization Details Recorded Time COVID-19, mRNA, LNP-S, PF, 100 mcg/0.5mL dose or 50 mcg/0.25mL dose 1 completed Not Available On license of [facility] 08/28/2023 03:09:09 COVID-19, mRNA, LNP-S, PF, 100 mcg/0.5mL dose or 50 mcg/0.25mL dose 1 completed Not Available On license of [facility] 08/28/2023 03:09:09 Tdap 1 completed Not Available On license of [facility] 08/28/2023 03:09:09 Influenza, split virus, quadrivalent, preservative 0 completed Not Available On license of [facility] 08/28/2023 03:09:08 Past Encounters Encounter ID Performer Location Encounter Start Date Encounter Closed Date Diagnosis/Indication Diagnosis SNOMED-CT Code Diagnosis ICD10 Code Diagnosis IMO Codes Diagnosis Note [id number] Oleg Denise [facility] [address] [facility] [address] 06/20/2018 16:12:40 06/20/2018 16:37:27 Paronychia of finger 367240920 L03.019 Essential hypertension 97218206 I10 stable Type 2 delores betes mellitus without complication 924277674 E11.9 [id number] Oleg Denise [facility] [address] [facility],[place] [address] 11/07/2018 16:19:32 11/10/2018 08:13:48 Type 2 diabetes mellitus without complication 624935307 E11.9 poor control will need to increase metformin to 1000mg po bid Essential hypertension 05695979 I10 stable and without issue cont the same meds and no further issue Hypercholesterolemia 136 39598 E78.00 LDL is excellent at 63 Paroxysmal atrial fibrillation 339918360 I48.0 has only had a rare funny palpitatio n on very rare occasion has never needed the flecanide tab [id number] Oleg Denise [facility] [address] [facility],[place] [address] 01/06/2020 09:08:58 01/06/2020 09:53:16 Type 2 diabetes mellitus without complication 102020087 E11.9 poor control even with increase metformin to 1000mg po bid Essential hypertension 04954584 I10 stable and without issue cont the same meds and no further issue Paroxysmal atrial fibrillation 672702178 I48.0 having more episodes assoc with ?increased gluc? but has never needed the flecanide tab as of yet ecg is nsr no signs of abnormalit y normal indices [id number] Oleg Denise, [facility] [address] [facility] [address],[place] [place] [facility] [place] [address] 05/18/2020 09:46:20 05/18/2020 10:52:24 Paroxysmal atrial fibrillation 703417667 I48.0 having more episodes assoc with ?increased gluc? but has never needed the flecanide tab as of yet ecg is nsr no signs of abnormalit y normal indices Type 2 delores betes mellitus without complication 023109269 E11.9 poor control even with increase metformin to 1000mg po bid (10.1) we will add januvia and consider trulicity type if unhelpful rechkj a1c in 2 mo with appt Essential hypertension 00477438 I10 stable and without issue cont the same meds and no further issue [id number] Oleg Denise [facility] [address] [facility],[place] [address] 03/29/2021 14:17:29 03/29/2021 14:58:39 Essential hypertension 94273228 I10 BP excellent Hypercholesterolemia 136 40949 E78.00 stable Type 2 delores betes mellitus without complication 406453498 E11.9 stableneed s BW Paroxysmal atrial fibrillation 495480587 I48.0 stable [id number] Oleg Denise [facility] [address] [facility] [address],[place] [address] 04/11/2021 14:43:35 04/11/2021 15:41:32 Type 2 diabetes mellitus without complication 962750561 E11.9 poor contro overall and it is confusing given he is 11.8 a1c despite a well documented wgt loss of >15lbswe millie try to get him januvia and trulicity but am worried about the insurance and deny ingorder written and he will let us knowmust get eye exam Essential hypertension 80901188 I10 stable and without issue cont the same meds and no further issue Hypercholesterolemia 136 20232 E78.00 LDL is excellent at 63 Paroxysmal atrial fibrillation 813418106 I48.0 having more episodes assoc with ?increased gluc? but has never needed the flecanide tab as of yet ecg is nsr no signs of abnormalit y normal indices [id number] Oleg Denise DO [facility] [address] [facility],[place] [address] 07/04/2021 14:52:29 07/04/2021 16:07:17 Paroxysmal atrial fibrillation 289113173 I48.0 having more episodes assoc with ?increased gluc? but has never needed the flecanide tab as of yet ecg is nsr no signs of abnormalit y normal indices Type 2 delores betes mellitus without complication 890601489 E11.9 now better control and is doing a lot better with diet now down to 9.5 from 11.7doing ok with trulicity and we will increase to 1mgcont the formnan d had lost some wgt as well until recently must get eye exam Essential hypertension 01647449 I10 stable and without issue cont the same meds and no further issue [id number] Oleg Denise DO [facility] [address] [facility],[place] [address] 10/09/2021 08:19:50 2021 15:29:07 Type 2 diabetes mellitus without complication 784450454 E11.9 now down to 9.3 from 9.4 then 9.5 from 11.7doing ok with trulicity and we will increase to 1mgcont the formnan d had lost some wgt as well until recently must get eye exam Paroxysmal atrial fibrillation 627362983 I48.0 has had no episodes but has never needed the flecanide tab as of yet ecg is nsr no signs of abnormalit y normal indices Screening for malignant neoplasm of colon 930517082 Z12.11 needs colonoscop y Essential hypertension 51921282 I10 stable and without issue cont the same meds and no further issue [id number] Oleg Denise DO [facility] [address] [facility],[place] [address] 05/16/2022 15:41:15 05/16/2022 16:07:10 Active or passive immunization 421800768 Z23 advised Adult heal th examination 096500063 Z00.00 BP stable [id number] Oleg Denise [facility] [address] [facility], [place] [address] 07/09/2022 15:32:44 07/09/2022 16:23:41 Paroxysmal atrial fibrillation 603776223 I48.0 has had no episodes but has never needed the flecanide tab as of yet ecg is nsr no signs of abnormalit y normal indices Type 2 delores betes mellitus without complication 880794814 E11.9 nowback up to 10.1 from 9.3 from 9.4 then 9.5 from 11.7doing ok with trulicity and we will increase to 1mgcont the metformnan d we will start the Jardiance 10mg x 4 weeks then up to 25mg and call in 6 weeks so we can give him more samples must get eye exam Essential hypertension 15841730 I10 stable and without issue cont the same meds and no further issue Active or passive immunization 149400989 Z23 patient advised he is due for flu & pneu 23 [id number] [facility] [address] [facility] [address] 01/18/2023 11:55:47 01/18/2023 15:22:14 Type 2 diabetes mellitus without complication 873222469 E11.9 nowback up to 10.1 from 9.3 from 9.4 then 9.5 from 11.7doing ok with trulicity and we will wait for 3mg availabili ty to increase to 3mgcont the metformnan d we will start the Jardiance 10mg x 4 weeks then up to 25mg and call in 6 weeks so we can give him more samples must get eye exam Essential hypertension 04812316 I10 stable and without issue cont the same meds and no further issue Paroxysmal atrial fibrillation 283589682 I48.0 has had no episodes but has never needed the flecanide tab as of yet ecg is nsr no signs of abnormalit y normal indices Screening for malignant neoplasm of colon 720166948 Z12.11 needs colonoscop y Hypercholesterolemia 136 12355 E78.00 LDL is excellent at 63 [id number] Oleg Denise [facility] [address] [facility], [place] [address] 05/06/2023 15:43:30 05/06/2023 16:39:24 Essential hypertension 20003774 I10 stable and without issue cont the same meds and no further issue Type 2 delores betes mellitus without complication 936035687 E11.9 we are waiting for a1c today he was down to 8.5 from 10.1 from 9.3 from 9.4 then 9.5 from 11.7doing ok with trulicity [facility] d we will start the Jardiance 10mg x 4 weeks then up to 25mg and call in 6 weeks so we can give him more samples must get eye exam still has not done Hypercholesterolemia 136 00367 E78.00 LDL is excellent at 63 Paroxysmal atrial fibrillation 836539040 I48.0 has had no episodes but has never needed the flecanide tab as of yet ecg is nsr no signs of abnormalit y normal indices Screening for malignant neoplasm of colon 590555482 Z12.11 needs colonoscop y [id number] Oleg Denise [facility] [address] [facility],[place] [address] 10/07/2023 15:32:33 10/07/2023 16:50:05 Type 2 diabetes mellitus without complication 371632014 E11.9 awaitingdo ing ok with trulicity [facility] will start the Jardiance 10mg x 4 weeks then up to 25mg and call in 6 weeks so we can give him more samples must get eye exam still has not done Atrial fibrillation 4943 6004 I48.0 has been stable and ddoing ok Essential hypertension 87984821 I10 stable and without issue cont the same meds and no further issue Paroxysmal atrial fibrillation 137983195 I48.0 has had no episodes but has never needed the flecanide tab as of yet ecg is nsr no signs of abnormalit y normal indices [id number] Oleg Denise DO [facility] [address] [facility],[place] [address] 12/09/2024 14:58:57 12/09/2024 15:34:21 Hypercholesterolemia 61245359 E78.00 LDL is excellent at 63 Essential hypertension 36513554 I10 stable and without issue cont the same meds and no further issue Type 2 delores betes mellitus without complication 814699563 E11.9 a1c is up to 10 not doing well with dietwill try adding glimepirid e priorawait ingdoing ok with trulicity now back to 3mgcont the metformnan d we will start the Jardiance 10mg x 4 weeks then up to 25mg and call in 6 weeks so we can give him more samples must get eye exam still has not done Depression screening 171 680894 Z13.31 neg Atrial fibrillation 4943 6004 I48.0 has been stable and doing ok Pain of ri ght shoulder joint 0254246157 4484444 M25.511 Screening for malignant neoplasm of colon 948972781 Z12.11 needs colonoscop y [id number] Oleg Denise DO [facility] [address] [facility] [address],[place] [address] 04/13/2025 14:16:52 04/13/2025 15:11:37 Active or passive immunization 935706720 Z23 patient advised he is due for flu & pneu 23 Hypercholesterolemia 136 45660 E78.00 LDL is excellent at 63 Atrial fibrillation 4943 6004 I48.0 has been stable and doing ok 2 episodes quick and gone Essential hypertension 58374148 I10 stable and without issue cont the same meds and no further issue Type 2 delores betes mellitus 73867393 E11.9 05143291 waiting for lab Paroxysmal atrial fibrillation 098822746 I48.0 has had no episodes but has never needed the flecanide tab as of yet ecg is nsr no signs of abnormalit y normal indices Well adult 989505699 Z00 .00 13478521 doing well overall needs eye exam also has colonoscop y set up for aug Health Concerns Section Related Observation LastModified by Organization Detai ls LastModified Time None Recorded Concern Status LastModified by Organization Details LastModified Time None Recorded Advance Directives Directive None Recorded Payers Insurance Date Sequence Insurance Name Policy Number Policy Shaw Covered Member ID Shaw Member ID Guarantor Name 08/06/2025 1 ELOISA [id number] Giles Ling [id number] Giles Ling Notes Date Note Type Note Provider Name and Address Organization Details Recorded Time 023 text/ht ml Diabetes F/UReported by PatientHPIFor context, patient reportsnormal range of home blood sugars (in the low 100s),seeing eye doctor regularly, andchecking feet regularly. For associated symptoms, patient reportsno weight gain,no weight loss,no dizziness,no sweats,no headaches,no confusion,no increased thirst,no increased appetite,no increased urination,no blurred vision,no numbness of feet, andno calluses on feet.has dropped his a1c from 10 to 8.5no prob with his medsusing jardiance and metformin and 1.5 Hypertension F/UReported by PatientHPIFor medications, patient reportstaking medications as directedandno side effects from medication. For lifestyle, patient reportsregular exercise,limiting/avoiding salt, andcompliant with low salt diet. For associated symptoms, patient reportsno dizziness,no lightheadedness,no chest pain,no shortness of breath,no palpitations,no edema,no calf pain with exertion, andno headache.ROS as noted in the HPI here for rechk and is doing about the sameno cp no sob rare occ palpitations ( 2 episodes did not have to take flecanide yet ) disapppear very quicklyfeeling goodsleep okbowels ok Oleg Denise, DO [address] [place], [address], [facility] 01/18/2023 12:42:38 023 text/ht ml ROS as noted in the HPI here for rechk and is doing wellno cp no sob no palpitationsappetite goodsleep is irregbowels oksome retention with urination and has to go back if he had been holding urinenocturia x1has dropped 5 lbs Oleg Denise, DO [address] [place], [address], [facility] 05/06/2023 16:24:15 024 text/ht ml Care Management - DiabetesReported by PatientHPIFor self care, patient reportsseeing eye doctor yearly for dilated eye exam,checking feet regularly,normal range of home blood sugars (in the low 100s), andno side effects from medications. For associated symptoms, patient reportssymptoms are usually well controlled,no fatigue,no dizziness,no excessive sweating,no headaches,no confusion,no increased thirst,no increased appetite,no increased urination,no blurred vision,no numbness of feet, andno calluses on feet. Care Management - HypertensionReported by PatientIFor self care, patient reportsnot under emotional stress. For severity, patient reportssymptoms are improvinganddoes not interfere with daily activities. For associated symptoms, patient reportsno dizziness,no lightheadedness,no chest pain,no shortness of breath,no palpitations,no edema,no calf muscle cramps,no blurred vision,no confusion,no headaches, andno fatigue.ROS as noted in the HPI here for rechk and is doing ok overallrelates that he has been feeling ok but has noticed one episode of palpitations this past fall which was self limited and didnt have to take any med forrelates has not bothered him in a long time Oleg Denise, DO [address] [facility], [place], [address], [facility] 10/07/2023 16:49:52 025 text/ht ml Care Management - DiabetesReported by PatientVALLEY VIEW MED[facility] CENTERor self care, patient reportsseeing eye doctor yearly for dilated eye exam,checking feet regularly,normal range of home blood sugars (in the low 100s), andno side effects from medications. For associated symptoms, patient reportssymptoms are usually well controlled,no fatigue,no dizziness,no excessive sweating,no headaches,no confusion,no increased thirst,no increased appetite,no increased urination,no blurred vision,no numbness of feet, andno calluses on feet. Care Management - HypertensionReported by PatientVALLEY VIEW MEDICAL CENTERor self care, patient reportsnot under emotional stress. For severity, patient reportssymptoms are improvinganddoes not interfere with daily activities. For associated symptoms, patient reportsno dizziness,no lightheadedness,no chest pain,no shortness of breath,no palpitations,no edema,no calf muscle cramps,no blurred vision,no confusion,no headaches, andno fatigue. Care Management - Atrial FibrillationReported by PatientCare ManagementFor medications, patient reportscompliant with medication. For prior imaging, patient reportsechocardiogramandrecent ecg.Interim HistoryFor associated symptoms, patient reportsno dizziness,no chest pain,no easy bruisability, andno rapid heart rate. Care Management - HyperlipidemiaReported by PatientHPIFor control, patient reportsusually well controlled,improving, andat goal. For complications, patient reportsno coronary artery disease,no heart attack,no cardiovascular disease,no pancreatitis, andno stroke. here for rechk and is doing goodrelates only having occ palpitations maybe once every 2 months self limited after a few minutes of sitting quietly Oleg Denise, DO [address] [place], [address], [facility] 12/09/2024 15:30:20 025 text/ht ml Annual WellnessReported by PatientSocial/Behavioral HistoryFor diet and nutrition, patient reportshealthy diet. For fracture risk, patient reportsno history of fractures,no recent explained fracture,no sudden unexplained fractures, andno previous musculoskeletal injuries. For physical activity, patient reportsexercises on a regular basis,recent increase in physical activity, andgood physical condition. For additional lifestyle factors, patient reportsno tobacco use,no alcohol intake, andstopped drinking alcohol.Mental Status:For depression risk, patient reportsnever feels sad, empty, or tearful,no loss of interest in activities,no significant changes in weight,no sleep disturbances or insomnia,no agitation,no loss of energy,no feelings of worthlessness or guilt,no thoughts of suicide,no history of depression, andno history of mood disorders.Functional AbilityFor hearing, patient reportsno loss of hearing. For vision, patient reportsno vision problems. Care Management - DiabetesReported by PatientHPIFor self care, patient reportsseeing eye doctor yearly for dilated eye exam,checking feet regularly,normal range of home blood sugars (in the low 100s), andno side effects from medications. For associated symptoms, patient reportssymptoms are usually well controlled,no fatigue,no dizziness,no excessive sweating,no headaches,no confusion,no increased thirst,no increased appetite,no increased urination,no blurred vision,no numbness of feet, andno calluses on feet. Care Management - Atrial FibrillationReported by PatientCare ManagementFor medications, patient reportscompliant with medication. For prior imaging, patient reportsechocardiogramandrecent ecg.Interim HistoryFor associated symptoms, patient reportsno dizziness,no chest pain,no easy bruisability, andno rapid heart rate. Care Management - HyperlipidemiaReported by PatientHPIFor control, patient reportsusually well controlled,improving, andat goal. For complications, patient reportsno coronary artery disease,no heart attack,no cardiovascular disease,no pancreatitis, andno stroke.ROS as noted in the HPI here for rechk doing ok overallrelates has had 2 episodes of palpitations usually gone in secondsbut can last for severalno cp no sob Oleg Denise, DO [address] [facility], [place], [address], [facility] 04/13/2025 14:58:09
--- OUTSIDE RECORDS SUMMARY | 2025-08-06 12:24 | XMS_ITS | Encounter Summary ---
Author Organization [facility] Address [address] [facility] [address] [place] [phone] Phone Care Team Providers Care Bakery Sales Clerk Name Role Phone Oleg Dsouza Primary Care Provider [phone] Encounter Details Date Type Department Care Team (Late st Contact Info) Description 07/16/2025 Procedure Pass [facility] Endoscopy Admitting Dept Virtual Department [address] [place] [address] Social History Tobacco Use Types Packs/Day Years Used Date Smoking Tobacco: Never Smokeless Tobacco: Never Alcohol Use Standard Drinks/Week Comments Yes 0 (1 standard drink = 0.6 oz pur e alcohol) occasionally Education Answer Date Recorded Are you interested in more education? Not on frandy e 01/11/2023 Are you concerned about learning? Not on file 01/11/2023 No 01/11/2023 No 01/11/2023 Digital Access Answer Date Recorded No 02/11/2023 No 02/11/2023 Reliable internet access at home? Not on file 02/11/2023 Device with a working camera? Not on file Intimate Partner Violence Answer Date R ecorded Are you denied basic needs s uch as food, clothing, or medical care? No 07/16/2025 In the past 12 months have y ou been in a relationship with a person who hurts, threatens, or tries to control you? No 07/16/2025 Are you denied basic needs s uch as food, clothing, or medical care? No 07/16/2025 In the past 12 months have y ou been in a relationship with a person who hurts, threatens, or tries to control you? No 07/16/2025 Sex and Gender Information Value Date Recorded Sex Assigned at Male 05/08/2020 4:12 PM EDT Legal Sex Male 9:36 PM EDT Gender Identity Male 05/08/2020 4:12 PM EDT Sexual Orientation Not on file documented as of this encounter Plan of Treatment Not on file documented as of this encounter Visit Diagnoses Not on filedocumented in this encounter Care Teams Bakery Sales Clerk Relationship Specialty Start Date End Date Oleg Dsouza DO [address] [place] [id number] [email or web address] PCP - General Internal Medicine 05/19/25 documented as of this encounter Additional Source Comments The information contained in this document represents components of the legal health record. It is not the complete legal health record.[facility]
--- OUTSIDE RECORDS SUMMARY | 2025-08-06 12:24 | XMS_ITS | Clinical Summary ---
Author Organization [facility] Address [address] [facility] [address] [place] [phone] Phone Care Team Providers Care Rehabilitation Case Coordinator Name Role Phone Haley Denise DO Primary Care Provider [phone] Allergies Active Allergy Reactions Criticality Noted Date Comments Azithromycin Rash Low 05/08/2020 Medications atorvastatin (LIPITOR) 40 MG tablet Take 40 mg by mouth daily. Active metoprolol succinate (TOPROL-XL) 100 MG 24 hr tablet Take 100 mg by mouth daily. Active metFORMIN (GLUCOPHAGE) 500 MG tablet Take 500 mg by mouth 2 (two) times a day with meals. Active aspirin 81 MG EC tablet Take 81 mg by mouth daily. Active TRULICITY 3 mg/0.5 mL subcutaneous injection Inject 3 mg under the skin every 7 days. 07/05/2025 Active JARDIANCE 25 mg tablet Take 1 tablet by mouth every morning. 07/01/2025 Active glimepiride (AMARYL) 4 MG tablet Take 1 tablet by mouth every morning. 06/30/2025 Active Encounters Date Type Department Care Team Description 07/16/2025 2:41 PM EDT Anesthesia Event [facility] Endoscopy Admitting Dept Virtual Department [address] [place] [address] Germán Price MD Johnson, Brian D, MD 07/16/2025 12:30 PM EDT - 07/16/2025 1:00 PM EDT Surgery [facility] Endoscopy Admitting Dept Virtual Department [address] [place] [address] Honorio Napoles MD COLONOSCOPY 07/16/2025 11:29 AM EDT - 07/16/2025 3:50 PM EDT Hospital Encounter [facility] Admitting Dept Virtual Department [address] [place] [address] Honorio Napoles MD Discharge Disposition: Home or Self Care 07/16/2025 Procedure Pass [facility] Endoscopy Admitting Dept Virtual Department [address] [place] [address] 07/06/2025 1:45 PM EDT Pre-Admission Testing Pre Procedure Evaluation [address] [place] [address] Honorio Napoles MD from Last 3 Months Social History Tobacco Use Types Packs/Day Years [...] Sign Reading Time Taken Comments Blood Pressure 126/88 07/16/2025 3:10 PM EDT Pulse 103 07/16/2025 3:10 PM EDT Temperature 36.5 C (97.7 F) 07/16/2025 3:00 PM EDT Respiratory Rate 20 07/16/2025 3:10 PM EDT Oxygen Saturation 99% 07/16/2025 3:10 PM EDT Inhaled Oxygen Concentration - - Weight 102.1 kg (225 lb) 07/07/2025 2:37 PM EDT Height 188 cm (6' 2 ) 07/07/2025 2:37 PM EDT Body Mass Index 28.89 07/07/2025 2:37 PM EDT Plan of Treatment Health Maintenance Due Date Last Done Comments CREATININE LEVEL 1970 LIPID PANEL 1969 DEPRESSION SCREENING 1981 HEPATITIS C SCREENING 1987 HIV ONE-TIME SCREENING (18-6 5 YEARS) 1987 SCREENING FOR DIABETES 2004 COLOGUARD 2014 FIT TEST 2014 FOBT 2014 SIGMOIDOSCOPY 2014 VIRTUAL COLONOSCOPY 2014 PNEUMOCOCCAL VACCINES (50+ years) (1 of 1 - PCV) 2019 RSV VACCINE (1 - Risk 50-74 years 1-dose series) 2019 ZOSTER VACCINES (1 of 2) 2019 INFLUENZA VACCINE (#1) 2025 COVID-19 VACCINE (4 - 2024-2 6 season) 2025 08/28/2021, 01/22/2021, 12/25/2020 COLONOSCOPY 01/13/2026 07/16/2025 COLORECTAL CANCER SCREENING 01/13/2026 Adult Td,Tdap Booster 04/01/2031 04/01/2021 SMOKING STATUS SCREENING (On ce After 26 Yrs) Completed 07/16/2025 HEPATITIS A VACCINES Aged Out No long er eligible based on patient's age to complete this topic HIB VACCINES Aged Out No longer eligi ble based on patient's age to complete this topic MENINGOCOCCAL VACCINES (ACWY) Aged Out No longer eligible based on patient's age to complete this topic MENINGOCOCCAL VACCINES (B) Aged Out N o longer eligible based on patient's age to complete this topic Medical Devices Not on file Procedures Procedure Name Priority Date/Time Associated Diagnosis Comments ME COLSC FLX W/RMVL OF TUMOR POLYP LESION SNARE TQ 07/16/2025 2:37 PM EDT Colon cancer screening Special Needs PAF; NIDDM-on Jardiance; Trulicity; glimepiride; metformin(instructed by office) ME COLONOSCOPY W/BIOPSY SINGLE/MULTIPLE 07/16/2025 2:37 PM EDT Colon cancer screening Special Needs PAF; NIDDM-on Jardiance; Trulicity; glimepiride; metformin(instructed by office) ME COLONOSCOPY FLX DX W/COLLJ SPEC WHEN PFRMD 07/16/2025 2:37 PM EDT Colon cancer screening Special Needs PAF; NIDDM-on Jardiance; Trulicity; glimepiride; metformin(instructed by office) ENDOSCOPY, COLON 07/16/2025 1:54 PM EDT POCT GLUCOSE Routine 07/16/2025 12:45 PM EDT from Last 3 Months Results * ENDOSCOPY, COLON (07/16/2025 1:54 PM EDT) Narrative Transcriptions Honorio Napoles MD - 07/16/2025 1:54 PM EDT [facility] Patient Name: Giles Ling Attending MD:: HONORIO NAPOLES MD, Procedure Date: 07/16/2025 1:54 PM Date of : 1970 Age: 54 Admit Type: Outpatient Gender: Male Room: [place] [address] Referring MD: HALEY DENISE DO Exam Type: Colonoscopy Indications: Screening for colorectal malignant neoplasm, Thisis the patient's first colonoscopy Medications: Monitored Anesthesia Care Procedure: Informed consent was obtained from the patientafter discussion of the indications, limitations, alternatives, benefits, and risks of the procedure. Risks specifically discussed include but are not limited to medication reactions, missed lesions, bleeding, perforation, or the need for emergent surgery. Throughout the procedure, the patient's blood pressure, pulse, end-tidal CO2, and oxygensaturations were monitored continuously. The Olympus adult variable colonoscope [id number] #6 was introduced through the anus and advanced to the cecum, identified by the ileocecal valve. The colonoscopy was technically difficult and complexdue to inadequate bowel prep and significant looping.The patient tolerated the procedure well. The qualityof the bowel preparation was inadequate. Complications: No immediate complications. Estimated blood loss:None. Findings: A moderate amount of semi-liquid stool was found in the entire colon, precluding visualization. The exam was otherwise without abnormality. Impression: - Preparation of the colon was inadequate. - Stool in the entire examined colon. - The examination was otherwise normal. - No specimens collected. Recommendation: - Patient has a contact number available for emergencies. The signsand symptoms of potential delayed complications were discussed with the patient. Return to normal activities tomorrow. Written discharge instructions were provided to the patient. - Repeat colonoscopy within 6 months for screening purposes with alternative bowel prep. Honorio Napoles HONORIO NAPOLES MD 07/16/2025 3:20:42 PM This report has been signed electronically. Number of Addenda: 0 Note Initiated On: 07/16/2025 1:54 PM Procedure Date: 07/16/2025 1:54:[address] [place] [id number] [place] Haley Denise DO GI PROCEDURE ORDERABLES Final Re sult * (ABNORMAL) POCT Glucose (07/16/2025 12:45 PM EDT) Glucose, POCT 189(H) 70 - 100 mg/dL [facility] 07/16/2025 12:4 5 PM EDT 07/16/2025 12:47 PM EDT us Honorio Napoles MD POINT OF CARE TEST ORDERABLES Final Result [address] [address] from Last 3 Months Insurance [employer]IG[employer] PPO CIGNA PPO CIG[employer] PPO CIG[employer] PPO [employer] PPO [employer] PPO [employer] PPO [employer] PPO [employer] PPO Care Teams Rehabilitation Case Coordinator Relationship Specialty Start Date End Date Haley Denise DO [address] [place] [address] PCP - General Internal Medicine 05/19/25 Additional Source Comments The information contained in this document represents components of the legal health record. It is not the complete legal health record.[facility]
== END 2025-08-06 11:33 | disposition home or self-care (01) ==
LOC: HO.MANLDS 11:32
PROVIDERS: Visit Provider Internal Medicine
DX: E11.9 Type 2 diabetes mellitus without complications (principal)
CPT/HCPCS: 36415; 83036